=== PATIENT | female | born 1980 | race Caucasian/White ===

== ENCOUNTER → 2017-03-03 | Outpatient (CLI) | payer OTHER ==
[~2017-03-03] MED LIST: ASPIR-TRIN325 MG PO; COLACE 100MG C100 MG PO; FIORICET TAB1 EA PO; FLEXERIL 10 MG10 MG PO; IBUPROFEN600 MG PO; LOPRESSOR 25 MG25 MG GT; NORCO 10-325 T1 EACH PO; OMEPRAZOLE40 MG PO; PERCOCET 7.5-31 EACH PO; TOPAMAX200 MG PO; VITAMIN D250000 UNIT PO; XIFAXAN550 MG PO; ZANTAC150 MG PO; ZOFRAN4 MG PO; ZOLOFT100 MG PO
== END ==
LOC: KOH-I 15:27
DX: M54.12 Radiculopathy, cervical region (principal); M50.321 Other cervical disc degeneration at C4-C5 level; M50.322 Other cervical disc degeneration at C5-C6 level
CPT/HCPCS: 72125

== ENCOUNTER → 2017-04-10 | Outpatient (CLI) | payer OTHER | LOC: HEART 5 11:00 | DX: I20.9 Angina pectoris, unspecified (principal); R00.2 Palpitations ==

== ENCOUNTER → 2017-05-04 | Outpatient (CLI) | payer OTHER | LOC: CT 08:51 | DX: M66.812 Spontaneous rupture of other tendons, left shoulder (principal) | CPT/HCPCS: 73040; 73201; Q9962 ==

== ENCOUNTER 2017-05-14 12:30 | Emergency (ER) | payer OTHER ==
[~2017-05-14 12:30] MED LIST changes: -ASPIR-TRIN325 MG PO; -FIORICET TAB1 EA PO; -IBUPROFEN600 MG PO; -LOPRESSOR 25 MG25 MG GT; -NORCO 10-325 T1 EACH PO; -VITAMIN D250000 UNIT PO; -ZOFRAN4 MG PO
[2017-08-04] MEDS ORDERED: VITAMIN D250000 UNIT PO (15:41)
[2017-08-04] MEDS ORDERED: NORCO 10-325 T1 EACH PO (15:41)
[2017-08-04] MEDS ORDERED: FIORICET TAB1 EA PO (15:42)
[2017-08-04] MEDS ORDERED: ASPIR-TRIN325 MG PO (15:42)
[2017-08-04] MEDS ORDERED: IBUPROFEN600 MG PO (15:42)
[2017-08-04] MEDS ORDERED: LOPRESSOR 25 MG25 MG GT (15:43)
[2017-08-07] MEDS ORDERED: ZOFRAN4 MG PO (12:34)
[2017-08-07] MEDS ORDERED: NORCO 10-325 T1 EACH PO (12:34)
== END 2017-05-14 21:20 | disposition home or self-care (01) ==
LOC: ER1 12:30
DX: R10.2 Pelvic and perineal pain (principal); R11.2 Nausea with vomiting, unspecified; Z87.442 Personal history of urinary calculi
CPT/HCPCS: 36415; 76830; 81001; 84703; 96374; 96375; 96376; 99284; J1885; J2270; J2405

== ENCOUNTER → 2017-08-07 | Day surgery (SDC) | payer OTHER ==
[~2017-08-07] VITALS: Ht 170.2 cm; Wt 112.9 kg
[~2017-08-07] MED LIST changes: +ASPIR-TRIN325 MG PO; +FIORICET TAB1 EA PO; +IBUPROFEN600 MG PO; +LOPRESSOR 25 MG25 MG GT; +NORCO 10-325 T1 EACH PO; +VITAMIN D250000 UNIT PO; +ZOFRAN4 MG PO
[2017-08-07 06:52] LABS: HEMOGLOBIN 15.1 gm/dl (12.3-15.3); RED BLOOD COUNT 5.14 M/UL (4.00-5.10)
[2017-08-07 07:20] LABS: BUN/CREATININE RATIO 8 (0-10)
== END | disposition home or self-care (01) ==
LOC: OR 06:18
PROVIDERS: Orthopaedic Surgery
PROC: 0PBB0ZZ Excision of Left Clavicle, Open Approach (ICD-10-PCS; principal; 2017-08-07 08:15)
PROC: 0RNK0ZZ Release Left Shoulder Joint, Open Approach (ICD-10-PCS; 2017-08-07 08:15)
DX: M19.012 Primary osteoarthritis, left shoulder (principal); M75.42 Impingement syndrome of left shoulder; K21.9 Gastro-esophageal reflux disease without esophagitis; G89.29 Other chronic pain; M54.9 Dorsalgia, unspecified; M19.90 Unspecified osteoarthritis, unspecified site; Z82.49 Family history of ischemic heart disease and other diseases of the circulatory system; Z83.3 Family history of diabetes mellitus; Z88.1 Allergy status to other antibiotic agents; Z88.8 Allergy status to other drugs, medicaments and biological substances; Z79.82 Long term (current) use of aspirin; Z79.899 Other long term (current) drug therapy
CPT/HCPCS: 36415; 73020; 80048; 84703; 85027; J0171; J0690; J1885; J2250; J2405; J2710; J2795; J3010; J7120

== ENCOUNTER → 2020-12-30 | Outpatient (CLI) | payer MEDICARE ==
[~2020-12-30] MED LIST changes: +DEXILANT60 MG PO; +DIFLUCAN150 MG PO; +LIPITOR10 MG PO; -LOPRESSOR 25 MG25 MG GT; +LOPRESSOR 25 MG25 MG PO; +LORTAB ELIXIR 715 ML PO; +PERCOCET 5/325 T1 EA PO; +PHENERGAN 25 MG25 M1 PO; +Voltaren Gel 1% TOP; +ZOFRAN ODT 4 MG4 MG PO
== END ==
LOC: KOH-I 08:00
DX: R94.5 Abnormal results of liver function studies (principal); N28.1 Cyst of kidney, acquired; K76.0 Fatty (change of) liver, not elsewhere classified; R16.1 Splenomegaly, not elsewhere classified
CPT/HCPCS: 76700

== ENCOUNTER 2021-05-14 21:38 | Emergency (ER) | payer MEDICARE ==
[2021-05-15 01:18] LABS: HEMOGLOBIN 15.4 gm/dl (12.3-15.3); RED BLOOD COUNT 4.95 M/UL (4.00-5.10); WHITE BLOOD COUNT 7.6 K/UL (4.5-11.0)
[2021-05-15 01:47] LABS: BUN/CREATININE RATIO 14 (0-10)
== END 2021-05-15 02:55 | disposition home or self-care (01) ==
LOC: ER1 21:38
PROVIDERS: Family Medicine
DX: R07.9 Chest pain, unspecified (principal); R00.2 Palpitations; I48.91 Unspecified atrial fibrillation; I10 Essential (primary) hypertension; Z88.1 Allergy status to other antibiotic agents
CPT/HCPCS: 80053; 82550; 82553; 83874; 84484; 85025; 93005; 99285; J1642

== ENCOUNTER → 2021-09-16 | Outpatient (CLI) | payer MEDICARE | LOC: KOH-I 08:57 | DX: M46.1 Sacroiliitis, not elsewhere classified (principal); M53.3 Sacrococcygeal disorders, not elsewhere classified | CPT/HCPCS: 72202 ==

== ENCOUNTER → 2022-01-24 | Outpatient (CLI) | payer MEDICARE | LOC: RAD 13:24 | DX: M25.512 Pain in left shoulder (principal) | CPT/HCPCS: 73030 ==

== ENCOUNTER 2022-03-03 23:40 | Emergency (ER) | payer MEDICARE | END 2022-03-04 03:53 | disposition home or self-care (01) | LOC: ER1 23:40 | DX: R51.9 Headache, unspecified (principal) | CPT/HCPCS: 70450; 96374; 96375; 99284; J1170; J2550; J2765 ==

== ENCOUNTER 2022-05-24 00:03 | Emergency (ER) | payer MEDICARE ==
[2022-05-24 00:22] LABS: HEMOGLOBIN 15.7 gm/dl (12.3-15.3); RED BLOOD COUNT 5.03 M/UL (4.00-5.10); WHITE BLOOD COUNT 9.1 K/UL (4.5-11.0)
[2022-05-24 00:50] LABS: BUN/CREATININE RATIO 10 (0-10)
== END 2022-05-24 03:00 | disposition home or self-care (01) ==
LOC: ER1 00:03
DX: U07.1 COVID-19 (principal); E87.6 Hypokalemia
CPT/HCPCS: 36600; 71045; 80053; 81001; 82550; 82553; 82803; 83605; 83690; 84484; 85025; 87040; 87077; 87086; 87186; 93005; 96361; 96374; 99284; J2550

== ENCOUNTER → 2022-06-02 | Outpatient (CLI) | payer MEDICARE ==
[2022-06-02 13:11] LABS: BORDETELLA PARAPERTUSSIS Not Detected (Not Detectd); BORDETELLA PERTUSSIS Not Detected (Not Detectd); CHLAMYDIA PNEUMONIAE Not Detected (Not Detectd); CORONAVIRUS HKU1 Not Detected (Not Detectd); CORONAVIRUS NL63 Not Detected (Not Detectd); CORONAVIRUS OC43 Not Detected (Not Detectd); CORONOAVIRUS 229E Not Detected (Not Detectd); HUMAN METAPNEUMOVIRUS Not Detected (Not Detectd); HUMAN RHINOVIRUS/ENTEROVIRUS Not Detected (Not Detectd); INFLUENZA A Not Detected (Not Detectd); INFLUENZA B Not Detected (Not Detectd); MYCOPLASMA PNEUMONIAE Not Detected (Not Detectd); PARAINFLUENZA VIRUS 1 Not Detected (Not Detectd); PARAINFLUENZA VIRUS 2 Not Detected (Not Detectd); PARAINFLUENZA VIRUS 3 Not Detected (Not Detectd); PARAINFLUENZA VIRUS 4 Not Detected (Not Detectd); RESPIRATORY SYNCYTIAL VIRUS Not Detected (Not Detectd)
[2022-06-02 13:12] LABS: SARS-CoV-2 DETECTED (Not Detectd)
== END ==
LOC: LAB 11:09
PROVIDERS: Internal Medicine
DX: Z20.822 Contact with and (suspected) exposure to COVID-19 (principal)
CPT/HCPCS: 87633

== ENCOUNTER → 2022-07-19 | Outpatient (CLI) | payer MEDICARE | LOC: RAD 10:48 | DX: Z01.818 Encounter for other preprocedural examination (principal); K30 Functional dyspepsia; R53.83 Other fatigue; K31.84 Gastroparesis | CPT/HCPCS: 71046 ==